=== PATIENT | female | born 1965 | race Caucasian/White ===

== ENCOUNTER 2017-04-20 10:32 | Outpatient (CLI) ==
[2017-04-20 12:46] LABS: BASOPHILS # (AUTO) 0.1 K/uL (0-0.2); EOSINOPHILS # (AUTO) 0.1 K/ul (0.0-0.7); EOSINOPHILS % (AUTO) 1.5 % (0.0-7.0); HEMATOCRIT 41.6 % (37.0-47.0); HEMOGLOBIN 14.1 g/dl (12.0-16.0); IMMATURE GRANULOCYTE % (AUTO) 0.2 % (0.0-5.0); LYMPHOCYTES # (AUTO) 1.7 K/uL (0.60-3.4); LYMPHOCYTES % (AUTO) 28.5 (10.0-50.0); MEAN CORPUSCULAR HEMOGLOBIN 35.8 pg (27.0-31.0); MEAN CORPUSCULAR HGB CONC 33.9 (31.8-35.4); MEAN CORPUSCULAR VOLUME 105.6 fl (81.0-99.0); MONOCYTES # (AUTO) 0.5 K/uL (0.4-2.0); MONOCYTES % (AUTO) 8.5 (0-10); NEUTROPHILS # (AUTO) 3.6 K/ul (2.0-6.9); NEUTROPHILS % (AUTO) 60.3; PLATELET COUNT 300 10^3/uL (140-440); RED BLOOD COUNT 3.94 10^6/ul (4.20-5.40); WHITE BLOOD COUNT 5.97 K/ul (4.6-10.2)
[2017-04-20 12:50] LABS: ANISOCYTOSIS NOT PRESENT (NOT PRESENT)
[2017-04-20 13:26] LABS: ALBUMIN 4.5 g/dL (3.4-5.0); ALBUMIN/GLOBULIN RATIO 1.1; ANION GAP 19.4; BILIRUBIN,TOTAL 0.78 mg/dL (0.00-1.20); BUN/CREATININE RATIO 12.94; CALCIUM 9.7 mg/dL (8.2-10.2); CHOL/HDL RATIO 2.7 (4.5-5.5); CREATININE 0.85 mg/dL (0.60-1.30); POTASSIUM 4.4 mmol/L (3.5-5.10); TOTAL PROTEIN 8.6 g/dL (6.4-8.2)
== END 2017-04-20 10:33 | disposition home or self-care (01) ==
LOC: LAB 10:32
PROVIDERS: ATTEND Nurse Practitioner Family
DX: M54.2 Cervicalgia (principal); M54.9 Dorsalgia, unspecified; Z00.00 Encounter for general adult medical examination without abnormal findings; Z98.890 Other specified postprocedural states
CPT/HCPCS: 36415; 80053; 80061; 84443; 85008; 85025

== ENCOUNTER 2017-04-20 10:50 | Outpatient (CLI) ==
--- NOTE | 2017-04-20 13:35 | CT ---
EXAM: CT lumbar spine without contrast TECHNIQUE: Helical axial CT of the lumbar spine was performed without contrast with coronal and sag ittal reconstructions. COMPARISON: None. HISTORY: Back pain and prior surgery FINDINGS: There has been prior lumbar instrumentation consisting of pedicle screws and Baca r ods as well as bony fusion from L3 to the sacrum. There are no pedicle screws in the L5 vertebral b chano. The hardware is intact. There appear to be some minimal loosening of the pedicle screws in th e sacrum. There is very advanced degenerative change at the L4-5 level where there is a grade II to III anterior listhesis measuring 1.8 cm. The L4-5 disc space demonstrates advanced degenerative ch anges with disc space narrowing and endplate sclerosis. There is quite a bit of vertebral body heig ht loss involving the anterior aspect of the L5 vertebral body which appears to be chronic. There i s no bony effacement of the canal. There is also a minimal retrolisthesis of L3 upon L4 measuring 4 mm. There is an incidental circumaortic left renal vein which is a normal variant. L1-2: Normal L2-3: There is some facet and ligamentous hypertrophy. The canal and foramina are widely patent. L3-4: This level has been fused. There is very advanced facet and ligamentous hypertrophy. The ca nal and foramina appear to be widely patent. There is minimal retrolisthesis of 4 mm. L4-5: There are pedicle screws in the L4 vertebral body and none in the L5 vertebral body. There is anterolisthesis as above. There has been prior laminectomy and bony fusion. There is extremely ad vanced degenerative change of the disc space with extremely advanced facet and ligamentous hypertrop hy. There is severe narrowing of the bilateral L4 neural foramina worse on the left. L5 S1: There is facet and ligamentous hypertrophy. The disc spaces well preserved. Canal and fora patricia are widely patent. IMPRESSION: 1. Extremely advanced degenerative changes at L4-5 with a grade II to III anterolisthesis and very severe bilateral L4 foraminal narrowing worse on the left. 2. Postoperative and other degenerative changes as above. 3. Incidental circumaortic left renal vein which is a normal variant.
== END 2017-04-20 10:51 | disposition home or self-care (01) ==
LOC: RAD 10:50
PROVIDERS: ATTEND Nurse Practitioner Family
DX: M54.9 Dorsalgia, unspecified (principal); Z98.890 Other specified postprocedural states

== ENCOUNTER 2017-04-21 10:17 | Outpatient (CLI) ==
--- NOTE | 2017-04-21 12:03 | CT ---
EXAM: CT of the cervical spine without contrast History: Cervicalgia. Technique: Multiplanar CT images through the cervical spine were obtained without the administratio n of IV contrast Findings: The visualized upper lungs are free of consolidation. The visualized airway remains padilla nt. No acute fracture or subluxation. No prevertebral soft tissue swelling. Predental space is not wid ened. Mild to moderate multilevel degenerative disc space narrowing with endplate sclerosis and a f ew small anterior osteophytes. C2-3: No significant bony central canal stenosis or bony neural foraminal narrowing. C3-4: No significant bony central canal stenosis. Moderate bilateral bony neural foraminal narrowi ng secondary to uncovertebral and facet hypertrophy. C4-5: No significant bony central canal stenosis. Mild to moderate bilateral bony neural foraminal narrowing secondary to uncovertebral and facet hypertrophy. C5-6: No significant bony central canal stenosis. Severe left and moderate right bony neural pavel inal narrowing secondary to uncovertebral and facet hypertrophy. C6-7: No significant bony central canal stenosis. Moderate left and mild to moderate right bony ne ural foraminal narrowing secondary to uncovertebral and facet hypertrophy. Impression: 1. No acute osseous abnormality of the cervical spine. 2. Degenerative changes with level by level analysis as detailed above and most severe at C5-6 with severe left bony neural foraminal narrowing.
== END 2017-04-21 10:18 | disposition home or self-care (01) ==
LOC: RAD 10:17
PROVIDERS: ATTEND Nurse Practitioner Family
DX: M54.2 Cervicalgia (principal)

== ENCOUNTER 2017-04-29 11:51 | Outpatient (CLI) ==
[2017-04-29 14:03] LABS: FERRITIN 144.29 ng/mL (4.63-204.00)
[2017-04-30 09:24] LABS: TRANSFERRIN 280 mg/dL (200-370)
== END 2017-04-29 11:52 | disposition home or self-care (01) ==
LOC: LAB 11:51
PROVIDERS: ATTEND Nurse Practitioner Family
DX: D75.89 Other specified diseases of blood and blood-forming organs (principal); R79.89 Other specified abnormal findings of blood chemistry
CPT/HCPCS: 36415; 80074; 82607; 82728; 83540; 83550; 84466

== ENCOUNTER 2017-06-17 08:46 | Outpatient (CLI) ==
--- NOTE | 2017-06-17 10:21 | CT ---
EXAM: CT of the head without contrast History: Migraine headaches. Technique: Multiplanar CT images through the head were obtained without the administration of IV co ntrast Findings: The visualized paranasal sinuses and mastoid air cells are clear in general. No acute ca lvarial abnormalities. Intracranially the ventricular and cisternal spaces are normal in size, shape and configuration for a patient of this age. No dominant mass or midline shift. No hydrocephalous. No acute intracrania l hemorrhage or abnormal extraaxial fluid collections. Impression: No acute intracranial process.
== END 2017-06-17 08:47 | disposition home or self-care (01) ==
LOC: RAD 08:46
PROVIDERS: ATTEND Nurse Practitioner Family
DX: G43.909 Migraine, unspecified, not intractable, without status migrainosus (principal)

== ENCOUNTER 2017-08-13 12:46 | Outpatient (CLI) ==
--- NOTE | 2017-08-13 13:24 | DI ---
EXAM: RIGHT HAND, 3 VIEWS HISTORY: Right hand pain FINDINGS: No comparison. Bones appeared demineralized. There is negative ulnar variance with subtle pseudoarticulation between the distal ulna and radius. There is moderate osteoarthritis at the firs t carpal-metacarpal joint. Mild to moderate arthropathy at the first metatarsophalangeal joint with foreshortening of the fifth metatarsal which may be congenital in nature. No displaced acute fractur e or joint dislocation is seen. IMPRESSION: Arthritic and normal variant changes as described.
== END 2017-08-13 12:47 | disposition home or self-care (01) ==
LOC: RAD 12:46
PROVIDERS: ATTEND Nurse Practitioner Family
DX: Z12.31 Encounter for screening mammogram for malignant neoplasm of breast (principal); M79.641 Pain in right hand; W19.XXXD Unspecified fall, subsequent encounter
CPT/HCPCS: 77067

== ENCOUNTER 2017-10-23 13:15 | Outpatient (CLI) ==
[2017-10-23 13:33] LABS: ALBUMIN/GLOBULIN RATIO 0.85; ANION GAP 15.2; BILIRUBIN,TOTAL 0.29 mg/dL (0.00-1.20); BUN/CREATININE RATIO 20.51; CHOL/HDL RATIO 2.9 (4.5-5.5); CREATININE 0.78 mg/dL (0.60-1.30); POTASSIUM 4.2 mmol/L (3.5-5.10); TOTAL PROTEIN 8.7 g/dL (6.4-8.2)
[2017-10-23 13:50] LABS: COCAIN SCREEN,URINE NEGATIVE (NEGATIVE)
== END 2017-10-23 13:16 | disposition home or self-care (01) ==
LOC: LAB 13:15
PROVIDERS: ATTEND Nurse Practitioner Family
DX: R79.89 Other specified abnormal findings of blood chemistry (principal); E78.5 Hyperlipidemia, unspecified; F11.20 Opioid dependence, uncomplicated
CPT/HCPCS: 36415; 80053; 80061; 80306

== ENCOUNTER 2017-12-23 15:37 | Outpatient (CLI) | END 2017-12-23 15:38 | disposition home or self-care (01) | LOC: LAB 15:37 | PROVIDERS: ATTEND Nurse Practitioner Family | DX: F19.20 Other psychoactive substance dependence, uncomplicated (principal); G89.29 Other chronic pain; Z86.19 Personal history of other infectious and parasitic diseases | CPT/HCPCS: 80306; 81001 ==

== ENCOUNTER 2018-05-18 11:16 | Outpatient (CLI) | END 2018-05-18 11:17 | disposition home or self-care (01) | LOC: RHC-LAB 11:16 | PROVIDERS: ATTEND Nurse Practitioner Family | DX: M54.9 Dorsalgia, unspecified (principal); M54.2 Cervicalgia; G89.29 Other chronic pain; E78.5 Hyperlipidemia, unspecified; I10 Essential (primary) hypertension; R53.83 Other fatigue | CPT/HCPCS: 36415; 80053; 80061; 82306; 82607; 84443; 85008; 85025 ==

== ENCOUNTER 2018-08-20 13:03 | Outpatient (CLI) | END 2018-08-20 13:04 | disposition home or self-care (01) | LOC: RAD 13:03 | PROVIDERS: ATTEND Nurse Practitioner Family | DX: R10.9 Unspecified abdominal pain (principal); R11.2 Nausea with vomiting, unspecified; Z86.018 Personal history of other benign neoplasm ==

== ENCOUNTER 2018-11-30 12:52 | Outpatient (CLI) ==
--- NOTE | 2018-11-30 13:42 | CT ---
EXAM: CT of the left forearm without contrast History: Left forearm and elbow pain. Technique: Multiplanar CT images through the left forearm were obtained without the administration o f IV contrast Findings: Severe narrowing of the first carpal metacarpal joint with marginal sclerosis and osteophy te formation. No acute fracture or dislocation. Severe narrowing of the elbow joint with marginal s clerosis and prominent osteophytes. There is a moderate left elbow joint effusion with synovial thic kening and intra-articular loose bodies. Mild posterior soft tissue swelling. Impression: 1. No acute osseous abnormality. 2. 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 3. Left elbow joint effusion with synovial thickening and intra-articular loose bodies. 4. Severe osteoarthritis of the first carpal metacarpal joint. 5. Mild posterior soft tissue swelling at the elbow.
== END 2018-11-30 12:53 | disposition home or self-care (01) ==
LOC: RAD 12:52
PROVIDERS: ATTEND Nurse Practitioner Family
DX: M79.632 Pain in left forearm (principal); M79.89 Other specified soft tissue disorders